=== PATIENT | female | born 1960 | race African-American/Black ===

== ENCOUNTER 2019-02-01 14:32 | Emergency (ER) | payer OTHER ==
[~2019-02-01] VITALS: Ht 177.8 cm; Wt 81.6 kg
[2019-02-01] MEDS ORDERED: VALS1TAB8 PO (15:13)
[2019-02-01] MEDS ORDERED: AMLO10TA8 PO (15:13)
--- NOTE | 2019-02-01 15:13 | PHYS DOC ---
Past Medical History Past Medical History: Hypertension Past Surgical History: Hysterectomy, Tubal ligation Alcohol Use: None Drug Use: None Adult General Chief Complaint Chief Complaint: HYPERTENSION HPI HPI Patient is a 58 year old with history of hypertension who presents with complaining of elevation of blood pressure and needs for prescription of blood pressure medication. Patient states she cannot of her blood pressure medication about one week ago and denies that she does not have any refill of her medication and because her primary care physician was retired and she didn't have any way to get her medication. Patient states she went to the pharmacy and had 1 pill of amlodipine 10 mg and Valsartan /hydrochlorothiazide and came to ER for acute enough medication. Patient denies any symptoms at her blood pressure was 180s over 90s at arrival to ER. Review of Systems Review of Systems Constitutional: Denies fever or chills [] Eyes: Denies change in visual acuity, redness, or eye pain [] HENT: Denies nasal congestion or sore throat [] Respiratory: Denies cough or shortness of breath [] Cardiovascular: No additional information not addressed in HPI [] GI: Denies abdominal pain, nausea, vomiting, bloody stools or diarrhea [] : Denies dysuria or hematuria [] Musculoskeletal: Denies back pain or joint pain [] Integument: Denies rash or skin lesions [] Neurologic: Denies headache, focal weakness or sensory changes [] Endocrine: Denies polyuria or polydipsia [] All other systems were reviewed and found to be within normal limits, except as documented in this note. Physical Exam Physical Exam Constitutional: Well developed, well nourished, mild distress, non-toxic appearance. [] HENT: Normocephalic, atraumatic. Eyes: PERRLA, EOMI, conjunctiva normal, no discharge. [] Neck: Normal range of motion, no tenderness, supple, no stridor. [] Cardiovascular:Heart rate regular rhythm, no murmur [] Lungs & Thorax: Bilateral breath sounds clear to auscultation [] Abdomen: Bowel sounds normal, soft, no tenderness, no masses, no pulsatile masses. [] Skin: Warm, dry, no erythema, no rash. [] Back: No tenderness, no CVA tenderness. [] Extremities: No tenderness, no cyanosis, no clubbing, ROM intact, no edema. [] Neurologic: Alert and oriented X 3, no focal deficits noted. [] Psychologic: Affect normal, judgement normal, mood normal. [] Current Patient Data Vital Signs Vital Signs Date Time Temp Pulse Resp B/P (MAP) Pulse Ox O2 Delivery O2 Flow Rate FiO2 02/01/19 14:47 97.9 94 16 182/85 (117) 100 Room Air 97.9 EKG EKG [] Radiology/Procedures Radiology/Procedures [] Course & Med Decision Making Course & Med Decision Making Evaluation of patient in ER showed 58-year-old female patient who ran out of her blood pressure medication for one week and her primary care physician wants to tired and was not able to get the physician. Patient had blood pressure of 180/90 that improved with rest. Patient had her medication today. Prescription for 1 month supply was given and patient was advised to follow-up with a new primary care physician or return to ER if not able to get her primary care physician before finishing her medication. Dragon Disclaimer Dragon Disclaimer This electronic medical record was generated, in whole or in part, using a voice recognition dictation system. Departure Departure Impression: Primary Impression: Hypertension, accelerated Additional Impression: Medication refill Disposition: HOME, SELF-CARE (at 1509) Condition: IMPROVED Patient Instructions: Managing Your High Blood Pressure Additional Instructions: Continue home medication Follow-up with your primary care physician in 3-5 days Return to ER if not getting better Thank you for visiting [facility]. We appreciate you trusting us with your care. If any additional problems come up don't hesitate to return to visit us. Please follow up with your primary care provider so they can plan additional care if needed and know about the problem that you had. If symptoms worsen come back to the Emergency Department. Any concerning symptoms that start such as chest pain, shortness of air, weakness or numbness on one side of the body, running high fevers or any other concerning symptoms return to the ER. Scripts Valsartan/Hydrochlorothiazide (DIOVAN HCT 160-12.5 MG TAB) 1 Each Tablet 1 TAB PO DAILY, #30 TAB 0 Refills Prov: CHASTITY ACUNA MD 02/01/19 Amlodipine Besylate (AMLODIPINE BESYLATE) 10 Mg Tablet 10 MG PO DAILY, #30 TAB Prov: CHASTITY ACUNA MD 02/01/19 Problem Qualifiers CHASTITY ACUNA MD Feb 01, 2019 15:13
[2019-02-01 15:17] VITALS: BP 188/99
== END 2019-02-01 15:20 | disposition home or self-care (01) ==
LOC: ER 14:32
DX: I10 Essential (primary) hypertension (principal); Z76.0 Encounter for issue of repeat prescription; Z90.710 Acquired absence of both cervix and uterus; Z98.51 Tubal ligation status
CPT/HCPCS: 99283